=== PATIENT | female | born 1935 | race Caucasian/White ===

== ENCOUNTER 2017-06-04 08:20 | Day surgery (SDC) | payer OTHER ==
[~2017-06-04] VITALS: Ht 160 cm; Wt 63.0 kg
[2017-06-04] MEDS ORDERED: CEFAZOLIN SOD 1 GM/ ISO 50 ML PREMIX IV ONE (09:15)
[2017-06-04] MEDS ORDERED: LR 1,000 ML IV ONE (13:08)
[2017-06-04] MEDS ORDERED: NALOXONE HCL 0.4 MG/ML AMP (NARCAN) IVP ONE (13:15)
[2017-06-04] MEDS ORDERED: MIDAZOLAM HCL 5 MG/5 ML VIAL IVP PRN (13:15)
[2017-06-04] MEDS ORDERED: METOCLOPRAMIDE HCL 10 MG/2 ML VIAL IVP ONE (13:15)
[2017-06-04] MEDS ORDERED: KETOROLAC TROMETHAMINE 30 MG VIAL IVP ONE (13:15)
[2017-06-04] MEDS ORDERED: LABETALOL 100 MG/ 20ML VIAL IVP PRN (13:15)
[2017-06-04] MEDS ORDERED: MEPERIDINE HCL/PF 25 MG/ML DISP.SYRIN IVP PRN (13:15)
[2017-06-04] MEDS ORDERED: fentaNYL CITRATE/PF 100 MCG/2 ML AMP IVP PRN ×2 (13:15)
[2017-06-04] MEDS ORDERED: HYDROmorphone 1 MG INJ. 1 MG/ML AMPUL IVP PRN ×2 (13:15→13:30)
[2017-06-04] MEDS ORDERED: ONDANSETRON HCL 4 MG/2 ML VIAL IVP ONE (13:15)
[2017-06-04] MEDS ORDERED: D5/0.45 NS 1,000 ML IV SCH (13:19)
[2017-06-04] MEDS ORDERED: HYDROcodone/ACETAMIN 5-325 MG TAB (NORCO/ VICODIN) PO PRN ×2 (13:30)
[2017-06-04 16:25] VITALS: BP_SYST 156
== END 2017-06-04 15:40 | disposition home or self-care (01) ==
LOC: SED 08:20 → SMU 08:23 → EDSTATUS 11:30 → SED 15:40
PROVIDERS: ATTEND Colon & Rectal Surgery
DX: C50.911 Malignant neoplasm of unspecified site of right female breast (principal); I25.10 Atherosclerotic heart disease of native coronary artery without angina pectoris; I10 Essential (primary) hypertension; N81.10 Cystocele, unspecified; R32 Unspecified urinary incontinence; Z95.1 Presence of aortocoronary bypass graft; E78.5 Hyperlipidemia, unspecified; Z90.710 Acquired absence of both cervix and uterus; Z98.890 Other specified postprocedural states; M81.0 Age-related osteoporosis without current pathological fracture
CPT/HCPCS: 19081; 19281; 19301; 38525; 78195; 88305; 88307; 88333; 88342; A9541; J0690; J7120